=== PATIENT | male | born 1985 | race Two or more races ===

== ENCOUNTER 2018-01-01 18:49 | Emergency (ER) | payer SELFPAY ==
[~2018-01-01] VITALS: Ht 182.9 cm; Wt 72.6 kg
[2018-01-01 21:00] VITALS: BP 118/71
[2018-01-01 21:15] VITALS: BP 118/71
--- NOTE | 2018-01-02 10:53 | Diagnostic Imaging Report ---
Indication: Foot pain Technique: 3 views right foot Comparison: none Findings: No acute fractures. No dislocations. The joint spaces are preserved Impression: Negative
--- NOTE | 2018-01-02 10:54 | Diagnostic Imaging Report ---
Indication: Foot pain of unknown cause Technique: 3 views left foot Comparison: none Findings: No acute fractures. No dislocations. The joint spaces are preserved. Impression: Negative
--- NOTE | 2018-01-02 16:43 | Emergency Room Report ---
History of Present Illness General Chief Complaint: General Complaint Source: Patient Present Illness HPI 32 yo Male presents ED for clearance. Patient is in police custody. Patient was to be taken to accidents for psych evaluation but complained of foot pain so was brought here. Mental health evaluators at bedside. Pain is a 8 out of 10, dull, nonradiating to both feet. Patient is unable to provide any history as to why he has foot pain. Denies any other injuries. No other aggravating or relieving factors. Denies any other associated symptoms Allergies: Coded Allergies: No Known Allergies (Unverified , 01/01/18) Patient History Past Medical History: psych hx Past Surgical History: none Pertinent Family History: none Social History: Denies: smoking, alcohol use, drug use Immunizations: UTD Reviewed Nursing Documentation: PMH: Agreed, PSxH: Agreed Nursing Documentation-PMH Past Medical History: No Stated History Review of Systems All Other Systems: negative except mentioned in HPI Physical Exam Vital Signs Date Time Temp Pulse Resp B/P (MAP) Pulse Ox O2 Delivery O2 Flow Rate FiO2 01/01/18 18:43 98.0 78 16 113/73 98 Room Air 98.1 Sp02 EP Interpretation: reviewed, normal General Appearance: no apparent distress, alert, GCS 15, non-toxic Head: normocephalic, atraumatic Eyes: bilateral eye normal inspection, bilateral eye PERRL ENT: hearing grossly normal, normal pharynx, no angioedema, normal voice Neck: full range of motion, supple/symm/no masses Respiratory: chest non-tender, lungs clear, normal breath sounds, speaking full sentences Cardiovascular #1: regular rate, rhythm, no edema Cardiovascular #2: 2+ carotid (R), 2+ carotid (L), 2+ radial (R), 2+ radial (L) , 2+ dorsalis pedis (R), 2+ dorsalis pedis (L) Gastrointestinal: normal bowel sounds, non tender, soft, non-distended, no guarding, no rebound Rectal: deferred Genitourinary: normal inspection, no CVA tenderness Musculoskeletal: back normal, gait/station normal, normal range of motion, tender - bialteral feet Neurologic: alert, oriented x3, responsive, motor strength/tone normal, sensory intact, speech normal Psychiatric: judgement/insight normal, memory normal, mood/affect normal, no suicidal/homicidal ideation Reflexes: 3+ bicep (R), 3+ bicep (L), 3+ tricep (R), 3+ tricep (L), 3+ knee (R) , 3+ knee (L) Skin: normal color, no rash, warm/dry, well hydrated Lymphatic: no adenopathy Medical Decision Making Diagnostic Impression: Primary Impression: Medical clearance for psychiatric admission Additional Impression: Foot pain Qualified Codes: M79.671 - Pain in right foot; M79.672 - Pain in left foot ER Course Hospital Course 32-year-old male sent here for medical clearance. Currently in route to psych facility. complaining of foot pain Differential diagnoses include: Fracture, dislocation, sprain, contusion Clinical course Patient placed on stretcher. After initial history and physical, I ordered pain medications and Xrays of bilateral feet Xrays prelim read shows no acute fracture/dislocation. Patient is medically cleared for transfer to psych facility Diagnosis - medical clearance for psychiatric admission, foot pain transferred to psych facility Other X-Ray Diagnostic Results Other X-Ray Diagnostic Results #1: X-Ray ordered: L foot # of Views/Limited Vs Complete: 3 View Indication: Pain EP Interpretation: Yes Interpretation: no dislocation, no soft tissue swelling, no fractures Impression: No acute disease Electronically Signed by: Electronically signed by Joselito Moncada MD Other X-Ray Diagnostic Results #2: X-Ray ordered: R foot # of Views/Limited Vs Complete: 3 View Indication: Pain EP Interpretation: Yes Interpretation: no dislocation, no soft tissue swelling, no fractures Impression: No acute disease Electronically Signed by: Electronically signed by Joselito Moncada MD Last Vital Signs Date Time Temp Pulse Resp B/P (MAP) Pulse Ox O2 Delivery O2 Flow Rate FiO2 01/01/18 21:15 98.0 78 16 118/71 98 Room Air Status: improved Disposition: XFER TO PSYCH HOSP/UNIT Condition: Serious Referrals: NOT CHOSEN IPA/,REFERRING (PCP) Patient Instructions: Foot Contusion, [id number] JOSELITO MONCADA M.D. Jan 02, 2018 16:43
== END 2018-01-01 21:15 ==
LOC: EDBD 18:49 → EMR 21:05
DX: Z02.89 Encounter for other administrative examinations (principal); M79.671 Pain in right foot; M79.672 Pain in left foot
CPT/HCPCS: 99283